=== PATIENT | female | born 1985 | race Caucasian/White ===

== ENCOUNTER 2018-10-28 06:00 | Inpatient (IN) | payer MEDICAID ==
[~2018-10-28 06:00] MED LIST: CARBOPROST 250 MCG INJ IM; METHYLERGONOVINE 0.2 MG INJ IM; MISOPROSTOL 200 MCG TAB PR; OXYTOCIN 30 UNITS/LR 500 ML IV
[2018-10-28] MEDS: LACTATED RINGER'S 1,000 ML IV ×3 (06:32→18:04)
[2018-10-28 07:15] LABS: ADD MAN DIFF? NO
[2018-10-28 07:18] LABS: BASOPHILS % 0.4 % (0.0-2.0); EOSINOPHILS # 0.1 10^3/ul (0.0-0.5); EOSINOPHILS % 0.8 % (0.0-7.0); HEMOGLOBIN 12.7 g/dl (12.0-16.0); LYMPHOCYTES # 1.3 10^3/ul (0.8-2.9); LYMPHOCYTES % 13.2 % (15.0-51.0); MEAN CORPUSCULAR HEMOGLOBIN 26.1 pg (29.0-33.0); MEAN CORPUSCULAR HGB CONC 32.6 g/dl (32.0-37.0); MEAN CORPUSCULAR VOLUME 80.1 fl (82.0-101.0); MEAN PLATELET VOLUME 11.6 fl (7.4-10.4); MONOCYTE # 0.5 10^3/ul (0.3-0.9); MONOCYTES % 5.6 % (0.0-11.0); NEUTROPHIL # 7.6 10^3/ul (1.6-7.5); NEUTROPHILS % 79.4 % (39.0-77.0); PLATELET COUNT 114 10^3/UL (140-415); RED BLOOD COUNT 4.87 10^6/ul (4.20-5.40); RED CELL DISTRIBUTION WIDTH 15.2 % (11.5-14.5)
[2018-10-28 07:18] LABS: WHITE BLOOD COUNT 9.6 10^3/ul (4.8-10.8)
[2018-10-28 07:37] LABS: INR 0.86; PARTIAL THROMBOPLASTIN TIME 28.8 Sec (23.0-35.0); PROTIME 11.8 Sec (11.9-14.9); PT RATIO 0.9
[2018-10-28 07:40] LABS: GLUCOSE 95 mg/dl (70-220)
[2018-10-28 08:33] LABS: HEPATITIS B SURFACE ANTIGEN NEGATIVE (NEGATIVE)
[2018-10-28] MEDS ORDERED: DEXAMETHASONE 4 MG/ML 1 ML INJ (09:29)
[2018-10-28] MEDS ORDERED: ONDANSETRON 4 MG INJ (09:29)
[2018-10-28] MEDS: CEFAZOLIN 2 GM/50 ML (PMX) 50 ML IVPB (09:40)
[2018-10-28] MEDS ORDERED: ONDANSETRON 4 MG INJ IV (10:00)
[2018-10-28] MEDS ORDERED: NALOXONE (0.4 MG/ML) INJ IV (10:00)
[2018-10-28] MEDS ORDERED: DIPHENHYDRAMINE 50 MG INJ IV (10:00)
[2018-10-28] MEDS ORDERED: ZOLPIDEM 5 MG TAB PO (10:00)
[2018-10-28] MEDS ORDERED: HYDROmorphONE 0.5 MG/0.5 ML SYG IV (10:00)
[2018-10-28] MEDS ORDERED: morphine SULFATE/PF (10 MG/10 ML) INJ (10:30)
[2018-10-28] MEDS ORDERED: OXYTOCIN 30 UNITS/LR 500 ML IV (10:33)
[2018-10-28] MEDS ORDERED: NA PHOSPHATE/BIPHOS 133 ML ENEMA PR (11:00)
[2018-10-28] MEDS ORDERED: MISOPROSTOL 200 MCG TAB PR (11:00)
[2018-10-28] MEDS: OXYTOCIN 30 UNITS/LR 500 ML IV ×2 (11:14→15:39)
[2018-10-28] MEDS: KETOROLAC 30 MG INJ IV (13:53)
[2018-10-28 19:18] LABS: RAPID PLASMA REAGIN NONREACTIVE (NR)
[2018-10-28] MEDS: SENNA/DOCUSATE NA (8.6MG/50MG) TAB PO (21:49)
[2018-10-28] MEDS: HYDROmorphONE 0.5 MG/0.5 ML SYG IV (22:09)
[2018-10-29] MEDS: LACTATED RINGER'S 1,000 ML IV ×4 (03:16→20:59)
[2018-10-29] MEDS: KETOROLAC 30 MG INJ IV (06:01)
[2018-10-29 08:29] LABS: ADD MAN DIFF? NO
[2018-10-29 08:38] LABS: BASOPHILS % 0.3 % (0.0-2.0); EOSINOPHILS % 0.4 % (0.0-7.0); HEMATOCRIT 29.7 % (37.0-47.0); HEMOGLOBIN 9.6 g/dl (12.0-16.0); LYMPHOCYTES # 1.6 10^3/ul (0.8-2.9); LYMPHOCYTES % 14.7 % (15.0-51.0); MEAN CORPUSCULAR HEMOGLOBIN 25.7 pg (29.0-33.0); MEAN CORPUSCULAR HGB CONC 32.3 g/dl (32.0-37.0); MEAN CORPUSCULAR VOLUME 79.6 fl (82.0-101.0); MEAN PLATELET VOLUME 12.8 fl (7.4-10.4); MONOCYTE # 0.9 10^3/ul (0.3-0.9); MONOCYTES % 8.2 % (0.0-11.0); NEUTROPHIL # 8.3 10^3/ul (1.6-7.5); NEUTROPHILS % 75.9 % (39.0-77.0); PLATELET COUNT 115 10^3/UL (140-415); RED BLOOD COUNT 3.73 10^6/ul (4.20-5.40); RED CELL DISTRIBUTION WIDTH 15.6 % (11.5-14.5)
[2018-10-29] MEDS: SENNA/DOCUSATE NA (8.6MG/50MG) TAB PO ×2 (10:05→20:58)
[2018-10-29] MEDS: OXYCODONE/ACETAMINOPHEN (5/325) TAB PO ×4 (10:06→22:15)
[2018-10-29] MEDS: IBUPROFEN 600 MG TAB PO ×3 (14:26→23:53)
[2018-10-29] MEDS: LANOLIN HPA 1 PKT TOP (20:59)
[2018-10-30] MEDS: OXYCODONE/ACETAMINOPHEN (5/325) TAB PO ×3 (05:13→13:09)
[2018-10-30] MEDS: LACTATED RINGER'S 1,000 ML IV (05:15)
[2018-10-30] MEDS: IBUPROFEN 600 MG TAB PO ×2 (05:44→12:06)
[2018-10-30] MEDS: SENNA/DOCUSATE NA (8.6MG/50MG) TAB PO (09:17)
[2018-10-31] MEDS ORDERED: DIPHTH/TET/ACEL PERTUSS (ADULT) 0.5 ML VIAL IM* (09:00)
[2018-10-31] MEDS ORDERED: MEASLES,MUMPS,RUBELLA VACCINE INJ SC* (09:00)
== END 2018-10-30 14:15 | disposition home or self-care (01) | DRG 785 ==
LOC: L-D 06:00 → PP1 16:05
PROVIDERS: Specialist
PROC: 10D00Z1 Extraction of Products of Conception, Low, Open Approach (ICD-10-PCS; principal; 2018-10-28 08:00)
PROC: 0UB70ZZ Excision of Bilateral Fallopian Tubes, Open Approach (ICD-10-PCS; 2018-10-28 08:00)
DX: O34.211 Maternal care for low transverse scar from previous cesarean delivery (principal); Z3A.39 39 weeks gestation of pregnancy; Z37.0 Single live birth; Z30.2 Encounter for sterilization
CPT/HCPCS: 82947; 85025; 85610; 85730; 86592; 86850; 86900; 86901; 87340; 88302; 99464